=== PATIENT | female | born 1980 | race Hispanic/Latino ===

== ENCOUNTER 2016-05-05 06:27 | Emergency (ER) | payer SELFPAY ==
[2016-05-05] MEDS ORDERED: NARCAN 2 MG/2 ML ONE ×2 (06:32→06:35)
[2016-05-05] MEDS ORDERED: ZOFRAN ONE (06:33)
[2016-05-05 06:49] LABS: ISTAT Base Excess -4; ISTAT DEVICE 0; ISTAT HCO3 21.7; ISTAT PCO2 39.3 (35-45); ISTAT PH 7.349 (7.35-7.45); ISTAT PO2 90 (80-105); ISTAT SO2 97; ISTAT TCO2 23
[2016-05-05] MEDS ORDERED: ZOFRAN IV ONE (06:52)
[2016-05-05] MEDS ORDERED: NACL 0.9% 1000 ML 1,000 ML IV ONE (06:52)
[2016-05-05] MEDS ORDERED: NARCAN 0.4 MG/1 ML IV ONE (06:52)
[2016-05-05 07:27] LABS: Urine Drugs of Abuse Note Disclamer
[2016-05-05 07:28] LABS: Basophils % (Auto) 0.7 % (0.0-1.8); Eosinophils % (Auto) 2.5 % (0.0-4.3); Hematocrit 39.1 % (30.3-42.9); Hemoglobin 13.4 gm/dl (10.1-14.3); Mean Corpuscular HGB Conc 34 % (30-34); Mean Corpuscular Hemoglobin 32 pg (28-32); Mean Corpuscular Volume 92 fl (79-97); Platelet Count 354 K/mm3 (140-440); Red Blood Count 4.23 M/mm3 (3.65-5.03); White Blood Count 8.8 K/mm3 (4.5-11.0)
[2016-05-05 07:31] VITALS: BP 113/82
[2016-05-05 07:38] LABS: Bilirubin,Urine NEG (Negative); Blood,Urine NEG (Negative); Ketones,Urine TR mg/dL (Negative); Leukocyte Esterase,Urine NEG (Negative); Nitrite,Urine NEG (Negative); Protein,Urine <15 mg/dL mg/dL (Negative); Urobilinogen,Urine < 2.0 mg/dL (<2.0)
[2016-05-05 07:40] LABS: INR 0.98 (0.87-1.13)
[2016-05-05 07:41] LABS: Partial Thromboplastin Time 34.8 Sec. (24.2-36.6)
[2016-05-05 07:49] LABS: Alanine Aminotransferase 15 units/L (7-56); Albumin 3.8 g/dL (3.9-5); Alkaline Phosphatase 58 units/L (35-129); Bilirubin,Total 0.3 mg/dL (0.1-1.2); Blood Urea Nitrogen 12 mg/dL (7-17); Calcium 8.8 mg/dL (8.4-10.2); Carbon Dioxide 20 mmol/L (22-30); Chloride 102.3 mmol/L (98-107); Creatine Kinase 164 units/L (30-135); Glucose 106 mg/dL (65-100); Potassium 4.6 mmol/L (3.6-5.0); Sodium 138 mmol/L (137-145); Total Protein 7.7 g/dL (6.3-8.2)
[2016-05-05 07:52] LABS: Bilirubin,Indirect 0.1 mg/dL
--- NOTE | 2016-05-05 07:52 | XRay Report ---
AP CHEST: HISTORY: Altered mental status AP view of the chest demonstrates a normal mediastinal and cardiac contour with clear lungs and normal bony and soft tissue structures. IMPRESSION: Unremarkable AP chest.
[2016-05-05 07:57] LABS: Anion Gap 20 mmol/L; Bilirubin,Direct < 0.2 mg/dL (0-0.2)
--- NOTE | 2016-05-05 08:10 | Admit Criteria Form ---
Admission Criteria Documentation: ACUTE LOSS OF CONSCIOUSNESS- ALOC Clinical Indications for Inpatient Care (Place 'X' for any and all applicable criteria): Ongoing inpatient care may be needed for ANY ONE of the following(1)(2)(3)(5)(6) : [ ]I. Suspected serious etiology (eg, medical disorder, STONE SAWYER event) of mental status change [ ]II. Danger to self or others not manageable at lower level of care [ ]III. Grave disability (eg, inability to perform self care necessary at lower level of care) [ ]IV. Agitation or inappropriate behavior interfering with care for primary condition (eg, attempting to discontinue lines or drains prematurely, unable to cooperate with respiratory care) [ ]V. Delirium [A] [D][E] as described by ANY ONE of the following(26): [ ]a) Delirium due to alcohol or sedative [F] withdrawal [ ]b) Delirium of uncertain etiology that has not responded to appropriate empiric treatment [ ]c) Delirium that prevents performance of a life-sustaining function (eg, feeding or hydrating oneself) [X ]. General contraindications and/or Inappropriate clinical situations for Observational Care in patients with Acute Loss of Consciousness, when ANY ONE of the following is required: [X ]a) Prediction of prolongation of LOS based on ANY ONE of the following may be considered as a contraindication for observational care 2, 3, 4, 5, 6, 7, 8 , 9, 10, 11 [ ]i) Age > 65 yrs. [X ]ii) Patient arriving by ambulance [ ]iii) Patient with high acuity [ ]iv) Patient requiring vital sign monitoring [ ]v) Patient on IV medication [ ]b) Systolic blood pressures 180mmHg 3,12 [ ]c) Patient with altered mental status including delirium and other alteration of consciousness, (3) [ ]d) Patient whose discharge disposition will be to a senior living home or rehabilitation home should not be managed in Emergency Department Observation Unit. CMS rule requires 3 days hospital stay before such placement.3,13 [ ]e) Patient with failure to thrive due to broad array of etiologies 3,16,17 [ ]f) Inability to ambulate 3,14 Extended stay beyond goal length of stay for the primary condition may be needed until ALL of the following are present(3)(5): [ ]a) Underlying medical etiology of mental status change is absent, or has been established and adequately treated [ ]b) Danger to self or others is absent or manageable at lower level of care. [ ]c) Behavior crisis management, including physical or chemical restraints, is not required or available at lower level of car [ ]d) Substance or alcohol withdrawal is absent or manageable at lower level of care. [ ]e) Behavioral symptoms (eg, agitation, somnolence, inappropriate behavior) are absent, or are manageable at lower level of care. The original [facility] [employer] content created by [facility] [employer] has been revised. The portions of the content which have been revised are identified through the use of italic text or in bold, and [facility] [employer] has neither reviewed nor approved the modified material. All other unmodified content is copyright [facility] [employer]. Please see references footnoted in the original [facility] edition 2016 Admission Criteria Met: Yes
--- NOTE | 2016-05-05 08:31 | Cat Scan Report ---
CT HEAD WITHOUT CONTRAST: HISTORY: Altered mental status. Serial contiguous axial images were obtained through the cranium. Intravenous contrast material was not administered. The ventricles are normal in size and appearance. There is no mass effect or midline shift. No areas of abnormally increased or decreased attenuation are seen. No mass lesion is seen. Moderate mucosal thickening is noted in the ethmoid and maxillary sinuses. The mastoid air cells are clear. IMPRESSION: Cranial CT scan within normal limits. Chronic sinus disease.
--- NOTE | 2016-05-05 09:36 | Emergency Department Report ---
ED Altered Mental Status HPI - General Chief Complaint: Altered Mental Status Stated Complaint: UNRESPONSIVE Time Seen by Provider: 05/05/16 06:51 Source: EMS Mode of arrival: Stretcher Limitations: Altered Mental Status - History of Present Illness Initial Comments: The patient was transported via EMS in a poorly responsive state. She was found in this condition behind a local hotel. Her glucose was over 100. EMS could not initiated an IV. Her pulse oximetry was ample. She was transported without further intervention or compromise. She arrived at this facility in a stuporous condition. However, she was maintaining her oxygen saturation at about 98%. MD Complaint: altered mental status -: unknown Severity: severe Consistency of Symptoms: unknown Context: drug abuse (substance abuse is suspected substance abuse is suspected) - Related Data Allergies Allergy/AdvReac Type Severity Reaction Status Date / Time Unable to Assess Allergy Unverified 05/05/16 06:52 ED Review of Systems ROS: Stated complaint: UNRESPONSIVE Other details as noted in HPI Comment: Unobtainable due to pts medical conditions ED Past Medical Hx - Past Medical History Previous Medical History?: No Additional medical history: Essentially unknown - Social History Substance Use Type: Other ED Physical Exam - General Limitations: Altered Mental Status General appearance: obtunded - Head Head exam: Present: atraumatic - Eye Eye exam: Present: normal appearance - ENT ENT exam: Present: mucous membranes moist - Neck Neck exam: Present: normal inspection. Absent: tenderness, meningismus - Respiratory Respiratory exam: Present: normal lung sounds bilaterally. Absent: respiratory distress - Cardiovascular Cardiovascular Exam: Present: regular rate, normal rhythm. Absent: systolic murmur, diastolic murmur, rubs, gallop - GI/Abdominal GI/Abdominal exam: Present: soft, normal bowel sounds. Absent: distended, tenderness, guarding, rebound, rigid - Extremities Exam Extremities exam: Present: normal inspection, full ROM, normal capillary refill. Absent: tenderness - Back Exam Back exam: Present: normal inspection - Neurological Exam Neurological exam: Present: altered, other (no gross focal deficits limited exam ) - Psychiatric Psychiatric exam: Present: flat affect - Skin Skin exam: Present: warm, dry, intact, normal color. Absent: rash - Level of Consciousness 1a. Level of Consciousness: not alert, rep stimuli - LOC Questions 1b. LOC Questions: answers no questions correctly - LOC Command 1c. LOC Commands: performs no tasks correctly - Best Gaze 2. Best Gaze: normal - Visual 3. Visual: no visual loss - Facial Palsy 4. Facial Palsy: normal symmetrical movement - Motor Arm 5b. Motor Arm Right: no drift 5a. Motor Arm Left: no drift - Motor Leg 6a. Motor Leg Left: no drift 6b. Motor Leg Right: no drift - Limb Ataxia 7. Limb Ataxia: absent - Sensory 8. Sensory: normal - Best Language 9. Best Language: no aphasia - Dysarthria 10. Dysarthria: normal - Extinction and Inattention 11. Extinction/Inattention: no abnormality - Scoring Total Score: 6 Stroke Severity: Moderate Stroke ED Course Vital Signs 05/05/16 05/05/16 05/05/16 06:51 06:59 07:00 Temperature 97.9 F Pulse Rate 85 78 Respiratory 14 14 Rate Blood Pressure 115/85 Blood Pressure 113/82 [Right] O2 Sat by Pulse 100 100 Oximetry - Reevaluation(s) Reevaluation #1: The patient's laboratory database was reasonably close to normal limits. Arterial blood gas showed no evidence of compromise. A CT of the head and a chest x-ray showed no acute process. Eventually the patient woke up and became coherent. She didn't require any assisted airway. She was actually referred to the service of the hospitalist Dr. Ho. Ankur, when he examined her she informed him that she wanted to sign out AMA. I instructed the nurses to verify that she was capable of completing her activities of daily living and ensure a safe discharge of a [facility] ambulatory patient. I believe they did so. 05/05/16 10:29 - Lab Data Result diagrams: 05/05/16 07:06 05/05/16 07:06 Lab Results 05/05/16 05/05/16 05/05/16 Range/Units 06:44 06:45 06:45 WBC (4.5-11.0) K/mm3 RBC (3.65-5.03) M/mm3 Hgb (10.1-14.3) gm/dl Hct (30.3-42.9) % MCV (79-97) fl MCH (28-32) pg MCHC (30-34) % RDW (13.2-15.2) % Plt Count (140-440) K/mm3 Lymph % (Auto) (13.4-35.0) % [place]assen % (Auto) (0.0-7.3) % Eos % (Auto) (0.0-4.3) % Baso % (Auto) (0.0-1.8) % Lymph # (1.2-5.4) K/mm3 [place]assen # (0.0-0.8) K/mm3 Eos # (0.0-0.4) K/mm3 Baso # (0.0-0.1) K/mm3 Seg Neutrophils % (40.0-70.0) % Seg Neutrophils # (1.8-7.7) K/mm3 PT (12.2-14.9) Sec. INR (0.87-1.13) APTT (24.2-36.6) Sec. POC ABG pH 7.349 L (7.35-7.45) POC ABG pCO2 39.3 (35-45) POC ABG pO2 90 (80-105) POC ABG HCO3 21.7 POC ABG Total CO2 23 POC ABG O2 Sat 97 POC ABG Base Excess -4 FiO2 21 % Sodium (137-145) mmol/L Potassium (3.6-5.0) mmol/L Chloride (98-107) mmol/L Carbon Dioxide (22-30) mmol/L Anion Gap mmol/L BUN (7-17) mg/dL Creatinine (0.7-1.2) mg/dL Estimated GFR ml/min BUN/Creatinine Ratio % Glucose (65-100) mg/dL Lactic Acid (0.7-2.0) mmol/L Calcium (8.4-10.2) mg/dL Total Bilirubin (0.1-1.2) mg/dL Direct Bilirubin (0-0.2) mg/dL Indirect Bilirubin mg/dL AST (5-40) units/L ALT (7-56) units/L Alkaline Phosphatase (35-129) units/L Total Creatine Kinase (30-135) units/L Troponin T (0.00-0.029) ng/mL Total Protein (6.3-8.2) g/dL Albumin (3.9-5) g/dL Albumin/Globulin Ratio % TSH (0.270-4.200) mlU/mL Urine Color Yellow (Yellow) Urine Turbidity Clear (Clear) Urine pH 5.0 (5.0-7.0) Ur Specific [place] 1.023 (1.003-1.030) Urine Protein <15 mg/dl (Negative) mg/dL Urine Glucose (UA) Neg (Negative) mg/dL Urine Ketones Tr (Negative) mg/dL Urine Blood Neg (Negative) Urine Nitrite Neg (Negative) Ur Reducing Substances Not Reportable Urine Bilirubin Neg (Negative) Urine Ictotest Not Reportable Urine Urobilinogen < 2.0 (<2.0) mg/dL Ur Leukocyte Esterase Neg (Negative) Urine WBC (Auto) 1.0 (0.0-6.0) /HPF Urine RBC (Auto) 2.0 (0.0-6.0) /HPF U Epithel Cells (Auto) 1.0 (0-13.0) /HPF Urine HCG, Qual Negative (Negative) Salicylates (2.8-20.0) mg/dL Urine Opiates Screen Presumptive negative Urine Methadone Screen Presumptive negative Acetaminophen (10.0-30.0) ug/mL Ur Barbiturates Screen Presumptive negative Ur Phencyclidine Scrn Presumptive negative Ur Amphetamines Screen Presumptive positive U Benzodiazepines Scrn Presumptive positive Urine Cocaine Screen Presumptive negative U Marijuana (THC) Screen Presumptive negative Drugs of Abuse Note Disclamer Plasma/Serum Alcohol (0-0.07) gm% 05/05/16 05/05/16 05/05/16 Range/Units 07:06 07:06 07:06 WBC 8.8 (4.5-11.0) K/mm3 RBC 4.23 (3.65-5.03) M/mm3 Hgb 13.4 (10.1-14.3) gm/dl Hct 39.1 (30.3-42.9) % MCV 92 (79-97) fl MCH 32 (28-32) pg MCHC 34 (30-34) % RDW 13.0 L (13.2-15.2) % Plt Count 354 (140-440) K/mm3 Lymph % (Auto) 14.4 (13.4-35.0) % [place]assen % (Auto) 8.1 H (0.0-7.3) % Eos % (Auto) 2.5 (0.0-4.3) % Baso % (Auto) 0.7 (0.0-1.8) % Lymph # 1.3 (1.2-5.4) K/mm3 [place]assen # 0.7 (0.0-0.8) K/mm3 Eos # 0.2 (0.0-0.4) K/mm3 Baso # 0.1 (0.0-0.1) K/mm3 Seg Neutrophils % 74.3 H (40.0-70.0) % Seg Neutrophils # 6.6 (1.8-7.7) K/mm3 PT 12.9 (12.2-14.9) Sec. INR 0.98 (0.87-1.13) APTT 34.8 (24.2-36.6) Sec. POC ABG pH (7.35-7.45) POC ABG pCO2 (35-45) POC ABG pO2 (80-105) POC ABG HCO3 POC ABG Total CO2 POC ABG O2 Sat POC ABG Base Excess FiO2 % Sodium 138 (137-145) mmol/L Potassium 4.6 (3.6-5.0) mmol/L Chloride 102.3 (98-107) mmol/L Carbon Dioxide 20 L (22-30) mmol/L Anion Gap 20 mmol/L BUN 12 (7-17) mg/dL Creatinine 0.6 L (0.7-1.2) mg/dL Estimated GFR > 60 ml/min BUN/Creatinine Ratio 20.00 % Glucose 106 H (65-100) mg/dL Lactic Acid (0.7-2.0) mmol/L Calcium 8.8 (8.4-10.2) mg/dL Total Bilirubin 0.3 (0.1-1.2) mg/dL Direct Bilirubin < 0.2 (0-0.2) mg/dL Indirect Bilirubin 0.1 mg/dL AST 31 (5-40) units/L ALT 15 (7-56) units/L Alkaline Phosphatase 58 (35-129) units/L Total Creatine Kinase 164 H (30-135) units/L Troponin T < 0.010 (0.00-0.029) ng/mL Total Protein 7.7 (6.3-8.2) g/dL Albumin 3.8 L (3.9-5) g/dL Albumin/Globulin Ratio 1.0 % TSH (0.270-4.200) mlU/mL Urine Color (Yellow) Urine Turbidity (Clear) Urine pH (5.0-7.0) Ur Specific [place] (1.003-1.030) Urine Protein (Negative) mg/dL Urine Glucose (UA) (Negative) mg/dL Urine Ketones (Negative) mg/dL Urine Blood (Negative) Urine Nitrite (Negative) Ur Reducing Substances Urine Bilirubin (Negative) Urine Ictotest Urine Urobilinogen (<2.0) mg/dL Ur Leukocyte Esterase (Negative) Urine WBC (Auto) (0.0-6.0) /HPF Urine RBC (Auto) (0.0-6.0) /HPF U Epithel Cells (Auto) (0-13.0) /HPF Urine HCG, Qual (Negative) Salicylates (2.8-20.0) mg/dL Urine Opiates Screen Urine Methadone Screen Acetaminophen (10.0-30.0) ug/mL Ur Barbiturates Screen Ur Phencyclidine Scrn Ur Amphetamines Screen U Benzodiazepines Scrn Urine Cocaine Screen U Marijuana (THC) Screen Drugs of Abuse Note Plasma/Serum Alcohol (0-0.07) gm% 05/05/16 05/05/16 05/05/16 Range/Units 07:06 07:06 07:06 WBC (4.5-11.0) K/mm3 RBC (3.65-5.03) M/mm3 Hgb (10.1-14.3) gm/dl Hct (30.3-42.9) % MCV (79-97) fl MCH (28-32) pg MCHC (30-34) % RDW (13.2-15.2) % Plt Count (140-440) K/mm3 Lymph % (Auto) (13.4-35.0) % [place] % (Auto) (0.0-7.3) % Eos % (Auto) (0.0-4.3) % Baso % (Auto) (0.0-1.8) % Lymph # (1.2-5.4) K/mm3 [place] # (0.0-0.8) K/mm3 Eos # (0.0-0.4) K/mm3 Baso # (0.0-0.1) K/mm3 Seg Neutrophils % (40.0-70.0) % Seg Neutrophils # (1.8-7.7) K/mm3 PT (12.2-14.9) Sec. INR (0.87-1.13) APTT (24.2-36.6) Sec. POC ABG pH (7.35-7.45) POC ABG pCO2 (35-45) POC ABG pO2 (80-105) POC ABG HCO3 POC ABG Total CO2 POC ABG O2 Sat POC ABG Base Excess FiO2 % Sodium (137-145) mmol/L Potassium (3.6-5.0) mmol/L Chloride (98-107) mmol/L Carbon Dioxide (22-30) mmol/L Anion Gap mmol/L BUN (7-17) mg/dL Creatinine (0.7-1.2) mg/dL Estimated GFR ml/min BUN/Creatinine Ratio % Glucose (65-100) mg/dL Lactic Acid 0.9 (0.7-2.0) mmol/L Calcium (8.4-10.2) mg/dL Total Bilirubin (0.1-1.2) mg/dL Direct Bilirubin (0-0.2) mg/dL Indirect Bilirubin mg/dL AST (5-40) units/L ALT (7-56) units/L Alkaline Phosphatase (35-129) units/L Total Creatine Kinase (30-135) units/L Troponin T (0.00-0.029) ng/mL Total Protein (6.3-8.2) g/dL Albumin (3.9-5) g/dL Albumin/Globulin Ratio % TSH 1.360 (0.270-4.200) mlU/mL Urine Color (Yellow) Urine Turbidity (Clear) Urine pH (5.0-7.0) Ur Specific [place] (1.003-1.030) Urine Protein (Negative) mg/dL Urine Glucose (UA) (Negative) mg/dL Urine Ketones (Negative) mg/dL Urine Blood (Negative) Urine Nitrite (Negative) Ur Reducing Substances Urine Bilirubin (Negative) Urine Ictotest Urine Urobilinogen (<2.0) mg/dL Ur Leukocyte Esterase (Negative) Urine WBC (Auto) (0.0-6.0) /HPF Urine RBC (Auto) (0.0-6.0) /HPF U Epithel Cells (Auto) (0-13.0) /HPF Urine HCG, Qual (Negative) Salicylates < 0.3 L (2.8-20.0) mg/dL Urine Opiates Screen Urine Methadone Screen Acetaminophen (10.0-30.0) ug/mL Ur Barbiturates Screen Ur Phencyclidine Scrn Ur Amphetamines Screen U Benzodiazepines Scrn Urine Cocaine Screen U Marijuana (THC) Screen Drugs of Abuse Note Plasma/Serum Alcohol (0-0.07) gm% 05/05/16 05/05/16 Range/Units 07:06 07:06 WBC (4.5-11.0) K/mm3 RBC (3.65-5.03) M/mm3 Hgb (10.1-14.3) gm/dl Hct (30.3-42.9) % MCV (79-97) fl MCH (28-32) pg MCHC (30-34) % RDW (13.2-15.2) % Plt Count (140-440) K/mm3 Lymph % (Auto) (13.4-35.0) % [place] % (Auto) (0.0-7.3) % Eos % (Auto) (0.0-4.3) % Baso % (Auto) (0.0-1.8) % Lymph # (1.2-5.4) K/mm3 [place] # (0.0-0.8) K/mm3 Eos # (0.0-0.4) K/mm3 Baso # (0.0-0.1) K/mm3 Seg Neutrophils % (40.0-70.0) % Seg Neutrophils # (1.8-7.7) K/mm3 PT (12.2-14.9) Sec. INR (0.87-1.13) APTT (24.2-36.6) Sec. POC ABG pH (7.35-7.45) POC ABG pCO2 (35-45) POC ABG pO2 (80-105) POC ABG HCO3 POC ABG Total CO2 POC ABG O2 Sat POC ABG Base Excess FiO2 % Sodium (137-145) mmol/L Potassium (3.6-5.0) mmol/L Chloride (98-107) mmol/L Carbon Dioxide (22-30) mmol/L Anion Gap mmol/L BUN (7-17) mg/dL Creatinine (0.7-1.2) mg/dL Estimated GFR ml/min BUN/Creatinine Ratio % Glucose (65-100) mg/dL Lactic Acid (0.7-2.0) mmol/L Calcium (8.4-10.2) mg/dL Total Bilirubin (0.1-1.2) mg/dL Direct Bilirubin (0-0.2) mg/dL Indirect Bilirubin mg/dL AST (5-40) units/L ALT (7-56) units/L Alkaline Phosphatase (35-129) units/L Total Creatine Kinase (30-135) units/L Troponin T (0.00-0.029) ng/mL Total Protein (6.3-8.2) g/dL Albumin (3.9-5) g/dL Albumin/Globulin Ratio % TSH (0.270-4.200) mlU/mL Urine Color (Yellow) Urine Turbidity (Clear) Urine pH (5.0-7.0) Ur Specific [place] (1.003-1.030) Urine Protein (Negative) mg/dL Urine Glucose (UA) (Negative) mg/dL Urine Ketones (Negative) mg/dL Urine Blood (Negative) Urine Nitrite (Negative) Ur Reducing Substances Urine Bilirubin (Negative) Urine Ictotest Urine Urobilinogen (<2.0) mg/dL Ur Leukocyte Esterase (Negative) Urine WBC (Auto) (0.0-6.0) /HPF Urine RBC (Auto) (0.0-6.0) /HPF U Epithel Cells (Auto) (0-13.0) /HPF Urine HCG, Qual (Negative) Salicylates (2.8-20.0) mg/dL Urine Opiates Screen Urine Methadone Screen Acetaminophen < 15.0 (10.0-30.0) ug/mL Ur Barbiturates Screen Ur Phencyclidine Scrn Ur Amphetamines Screen U Benzodiazepines Scrn Urine Cocaine Screen U Marijuana (THC) Screen Drugs of Abuse Note Plasma/Serum Alcohol < 0.01 (0-0.07) gm% Critical Care Time: Yes Critical care time in (mins) excluding proc time.: 45 Critical care attestation.: If time is entered above; I have spent that time in minutes in the direct care of this critically ill patient, excluding procedure time. ED Disposition Clinical Impression: Stupor Altered mental state Qualifiers: Altered mental status type: somnolence Qualified Code(s): R40.0 - Somnolence Disposition: LEFT AGAINST MEDICAL ADVICE Is pt being admited?: No Does the pt Need Aspirin: No Condition: Stable Referrals: PRIMARY CARE, [Primary Care Provider] - 3-5 Days Time of Disposition: 10:35
== END 2016-05-05 08:45 | disposition left against medical advice (07) ==
LOC: ED 06:27
DX: R40.0 Somnolence (principal); R40.1 Stupor
CPT/HCPCS: 36415; 51702; 70450; 71010; 80048; 80074; 80307; 81001; 81025; 82140; 82550; 82803; 84443; 84484; 85025; 85610; 85730; 87086; 96374; 96375; 99291; G0480; J2310; J2405; J7030; 80320

== ENCOUNTER 2018-01-24 13:27 | Emergency (ER) | payer OTHER ==
[2018-01-24 13:39] VITALS: BP 98/64
[2018-01-24] MEDS ORDERED: TORADOL IM ONE (14:28)
--- NOTE | 2018-01-24 15:09 | Emergency Department Report ---
<SENG CARTER - Last Filed: 01/24/18 16:06> ED Fall HPI - General Chief Complaint: Fall Stated Complaint: FELL DOWN STAIRS/RIB PAIN Time Seen by Provider: 01/24/18 14:21 - Related Data Previous Rx's Medication Instructions Recorded Last Taken Type Ibuprofen [Motrin] 800 mg PO Q8HR PRN #15 tablet 01/24/18 Unknown Rx Allergies Allergy/AdvReac Type Severity Reaction Status Date / Time No Known Allergies Allergy Verified 01/24/18 13:33 ED Review of Systems ROS: Stated complaint: FELL DOWN STAIRS/RIB PAIN Other details as noted in HPI ED Past Medical Hx - Medications Home Medications: Home Medications Medication Instructions Recorded Confirmed Last Taken Type Ibuprofen [Motrin] 800 mg PO Q8HR PRN #15 tablet 01/24/18 Unknown Rx ED Course Vital Signs 01/24/18 01/24/18 13:33 15:44 Temperature 98.4 F Pulse Rate 66 Respiratory 16 18 Rate Blood Pressure 98/64 O2 Sat by Pulse 97 Oximetry ED Medical Decision Making - Radiology Data Patient: BLANCA WILSON MR#: [id number] : 1980 Acct:[id number] Age/Sex: 38 / F ADM Date: 01/24/18 Loc: ED Attending Dr: Ordering Physician: SENG CARTER MD Date of Service: 01/24/18 Procedure(s): XR ribs UNI w PA Chest 3+V RT Accession Number(s): [id number] cc: SENG CARTER MD Fluoro Time In Minutes: RIGHT RIBS: Trauma, pain. Routine views of the rib cage demonstrate normal mineralization with no significant contour abnormalities, fractures or destructive lesions. PA view of the chest demonstrates no underlying cardiopulmonary abnormalities, fluid or pneumothorax. IMPRESSION: Normal right rib series. Transcribed By: CRYSTAL Dictated By: MICHAEL TREJO MD Electronically Authenticated By: MICHAEL TREJO MD Signed Date/Time: 01/24/18 4968 Critical care attestation.: If time is entered above; I have spent that time in minutes in the direct care of this critically ill patient, excluding procedure time. ED Disposition Clinical Impression: Thoracolumbar back pain, Rib pain on left side Accidental fall Qualifiers: Encounter type: initial encounter Qualified Code(s): W19.XXXA - Unspecified fall, initial encounter Disposition: DC-01 TO HOME OR SELFCARE Condition: Stable Instructions: Back Pain (ED), Thoracic Pain (ED), Fall Prevention (ED) Additional Instructions: Please follow up with orthopedic doctor and your primary care doctor as instructed. If he do not have a primary care doctor follow-up at [facility]. Take Motrin for pain. Rest and see discharge instructions on rice therapy If your condition worsens, return to the emergency room Referrals: PRIMARY MD ALBERT [Primary Care Provider] - 01/28/18 [facility] [Outside] - 01/28/18 MICHAEL GOSS MD [Staff Physician] - 01/28/18 Forms: Work/School Release Form(ED) <NILESGREGORIO A - Last Filed: 01/24/18 16:36> ED Fall HPI - General Source: patient, family Mode of arrival: Ambulatory Limitations: No Limitations - History of Present Illness Initial Comments: This is 38-year-old female here in the ER after falling down the stairs. She says she fell down 7 stairs and sustained injury to her left rib anterior and posterior and upper and lower back. She denies any numbness or 2 into extremities. Denies any loss of bowel or bladder control. Pain is nondistended at 10 and achy. Worse with movement. No alleviating factors. Patient denies any fever or chills or any neck pain or stiffness. Denies any chest or abdominal trauma. Denies any pain in her extremities or any head injury. She says she slipped on wet step. No medication taken per patient. MD Complaint: fall -: This morning Fall From: down stairs (#) (7) When Fall Occurred: 4-6 hours CHIEF OF VITAL STATISTICS Fall Witnessed: yes, by family Place Fall Occurred: home Loss of Consciousness: none Prolonged Down Time?: no Symptoms Prior to Fall: none Location: chest (left anterior rib and posterior rib pain), back (upper and lower back pain) Severity: severe Severity scale (0 -10): 9 Quality: aching Context: tripped/slipped Associated Symptoms: denies: headache, neck pain, numbness, weakness, chest paint, shortness of breath, abdominal pain, hematuria, unable to walk, lightheaded, vertigo, confusion ED Review of Systems Constitutional: denies: chills, fever Eyes: denies: eye pain, vision change ENT: denies: ear pain, throat pain, congestion Respiratory: denies: cough, shortness of breath, SOB with exertion, SOB at rest , stridor, wheezing Cardiovascular: other (tenderness to palpate to anterior and posterior left rib cage). denies: chest pain, palpitations, edema, syncope Gastrointestinal: denies: abdominal pain, nausea, vomiting, diarrhea, hematemesis, hematochezia Genitourinary: denies: urgency, dysuria, hematuria, discharge Musculoskeletal: back pain. denies: joint swelling, arthralgia, myalgia Skin: denies: rash, lesions Neurological: denies: headache, weakness, numbness, paresthesias, confusion, abnormal gait, vertigo Hematological/Lymphatic: denies: easy bleeding, easy bruising ED Past Medical Hx - Past Medical History Previous Medical History?: Yes Additional medical history: Essentially unknown - Surgical History Past Surgical History?: Yes Additional Surgical History: hysterectomy - Family History Family history: hypertension - Social History Smoking Status: Current Every Day Smoker Substance Use Type: None ED Physical Exam - General Limitations: No Limitations General appearance: alert, in no apparent distress - Head Head exam: Present: atraumatic, normocephalic, normal inspection, other (normal exam) - Eye Eye exam: Present: normal appearance, PERRL, EOMI. Absent: nystagmus Pupils: Present: normal accommodation - ENT ENT exam: Present: normal exam, normal orophraynx, mucous membranes moist, TM's normal bilaterally, normal external ear exam - Neck Neck exam: Present: normal inspection, full ROM, other (no C-spine tenderness). Absent: tenderness, lymphadenopathy - Respiratory Respiratory exam: Present: normal lung sounds bilaterally, chest wall tenderness (patient with left anterior and posterior rib cage tenderness at the lying to mid axillary line proximally and distally). Absent: respiratory distress, wheezes, rales, rhonchi, stridor, accessory muscle use, decreased breath sounds, prolonged expiratory - Cardiovascular Cardiovascular Exam: Present: regular rate, normal rhythm, normal heart sounds. Absent: systolic murmur, diastolic murmur - GI/Abdominal GI/Abdominal exam: Present: soft, normal bowel sounds. Absent: tenderness, organomegaly, mass - Extremities Exam Extremities exam: Present: normal inspection, full ROM. Absent: tenderness - Back Exam Back exam: Present: normal inspection, full ROM. Absent: tenderness, CVA tenderness (L), muscle spasm - Neurological Exam Neurological exam: Present: alert, oriented X3 - Psychiatric Psychiatric exam: Present: normal affect, normal mood - Skin Skin exam: Present: warm, dry, intact, normal color. Absent: rash ED Course - Reevaluation(s) Reevaluation #1: 01/24/18 16:15 Patient given Toradol 60 mg IM with some relief of pain. Still awaiting in x- ray reports Reevaluation #2: 01/24/18 16:26 Patient said her pain is better and I discussed with her that all her x-rays are within normal limits and she is fine. ED Medical Decision Making - Radiology Data Radiology results: report reviewed X-ray of T-spine and L-spine reviewed by myself and Dr. Seng Carter who is the medical technologist hematology. No acute fracture or subluxation seen. - Medical Decision Making This is a 38-year-old female reports that she fell down 7 steps accidentally today. She says she is having pain to her upper or lower back and her left anterior and posterior rib. X-ray of left ribs with PA chest shows no acute finding and this was dictated by radiologist and report reviewed by myself. X-ray of T-spine and L-spine reviewed by myself and Dr. Carter and final report still to come from radiologist. No acute fracture or subluxation seen. Assessment/plan 1: Thoracolumbar back pain secondary to accidental fall-better with Toradol 60 mg IM and patient will be sent home on Motrin 2: Left rib pain due to fall-x-ray left rib series with PA chest normal findings. Patient pain is better and she has no ecchymosis or bruising to her left anterior posterior rib. Patient is stable and in no acute distress. She said her pain is better. I discussed with her her x-ray reports and she voiced understanding told her she needs to follow-up with orthopedic and her primary care doctor on Sunday if she still continues to have pain. Patient is neurologically intact. Vital signs stable she is afebrile and discharged home in stable condition with prescription for Motrin. - Differential Diagnosis FX, subluxation, contusion, MSK pain ED Disposition Is pt being admited?: No Does the pt Need Aspirin: No
--- NOTE | 2018-01-24 15:42 | XRay Report ---
RIGHT RIBS: Trauma, pain. Routine views of the rib cage demonstrate normal mineralization with no significant contour abnormalities, fractures or destructive lesions. PA view of the chest demonstrates no underlying cardiopulmonary abnormalities, fluid or pneumothorax. IMPRESSION: Normal right rib series.
--- NOTE | 2018-01-24 16:42 | Emergency Department Report ---
Blank Doc - Documentation Documentation: Is a 38-year-old female with a past history of back pain who fell down 7 stairs and has some rib discomfort and exacerbation of her back pain. X- rays were taken of the T-spine and L-spine and right sided ribs and the patient be reassessed
--- NOTE | 2018-01-24 16:55 | XRay Report ---
FINAL REPORT EXAM: XR SPINE LUMBOSACRAL 2-3V HISTORY: post fall back pain TECHNIQUE: AP, lateral and coned-down views of the lumbar spine PRIORS: None. FINDINGS: There are 6 lumbar type vertebral bodies, which is a normal variant. The 6th vertebral level is a transitional vertebral body with partial sacralization on the left. The chronic nonfusion of the apophysis involving the superior anterior corner of L4 is noted. Otherwise, the vertebral body heights and disc spaces are well maintained. The alignment is normal. No evidence for spondylolysis or spondylolisthesis is seen. Pedicles are intact bilaterally at all levels. The paraspinal soft tissues are unremarkable. IMPRESSION: No evidence for acute fracture.
--- NOTE | 2018-01-24 16:56 | XRay Report ---
FINAL REPORT EXAM: XR SPINE THORACIC 2V HISTORY: post fall back pain TECHNIQUE: AP, lateral and swimmer's views of the thoracic spine. PRIORS: None. FINDINGS: The vertebral body heights and disc spaces are well maintained. Subtle levoscoliosis in the lower thoracic spine at T9 is noted. Pedicles are intact bilaterally at all levels. The paraspinal soft tissues are unremarkable. IMPRESSION: No acute abnormality in the thoracic spine.
== END 2018-01-24 16:45 | disposition home or self-care (01) ==
LOC: ED 13:27
DX: M54.5 Low back pain (principal); M54.89 Other dorsalgia; R07.81 Pleurodynia; F17.200 Nicotine dependence, unspecified, uncomplicated; W01.0XXA Fall on same level from slipping, tripping and stumbling without subsequent striking against object, initial encounter; Y93.89 Activity, other specified; Y99.8 Other external cause status; Y92.019 Unspecified place in single-family (private) house as the place of occurrence of the external cause
CPT/HCPCS: 71101; 72070; 72100; 96372; 99283; J1885

== ENCOUNTER 2020-06-10 18:46 | Emergency (ER) | payer SELFPAY ==
[2020-06-10 19:29] VITALS: BP 125/86
--- NOTE | 2020-06-10 19:45 | Emergency Department Report ---
ED Back Pain/Injury HPI - General Chief Complaint: Back Pain/Injury Stated Complaint: FURNITURE FELL ON BACK Time Seen by Provider: 06/10/20 18:51 Source: patient Limitations: No Limitations - History of Present Illness Initial Comments: Patient is a 40-year-old female presents emergency room with c/o left-sided back pain that began 2 days ago. Patient states that she was helping move some furniture with a ruben and that the top part of the dresser fell off and hit her on the left side of the back. She denies any other injury. She states that she does have a history of a prior fracture of her L2 vertebrae which she reports that she did not have to have surgery for. She denies hitting her head, loss of consciousness, vomiting, numbness, weakness, saddle numbness, bowel bladder incontinence, any other injury. She denies any other past medical history. No allergies to medications, she states that aspirin occasionally gives her epistaxis. She states that she had a partial hysterectomy. - Related Data Previous Rx's Medication Instructions Recorded Last Taken Type Ibuprofen [Motrin] 800 mg PO Q8HR PRN #15 tablet 01/24/18 Unknown Rx Menthol/Camphor [[place] 1 applicatio TP BID #18 oint...g. 06/10/20 Unknown Rx Ointment] Naproxen [EC-Naprosyn] 500 mg PO BID PRN #20 tablet.dr 06/10/20 Unknown Rx methOCARBAMOL [Robaxin TAB] 500 mg PO BID PRN #20 tab 06/10/20 Unknown Rx Allergies Allergy/AdvReac Type Severity Reaction Status Date / Time No Known Allergies Allergy Verified 01/24/18 13:33 ED Review of Systems ROS: Stated complaint: FURNITURE FELL ON BACK Other details as noted in HPI Comment: All other systems reviewed and negative ED Past Medical Hx - Past Medical History Previous Medical History?: No Additional medical history: Essentially unknown - Surgical History Past Surgical History?: Yes Additional Surgical History: hysterectomy - Social History Smoking Status: Never Smoker Substance Use Type: None - Medications Home Medications: Home Medications Medication Instructions Recorded Confirmed Last Taken Type Ibuprofen [Motrin] 800 mg PO Q8HR PRN #15 tablet 01/24/18 Unknown Rx Menthol/Camphor [[place] 1 applicatio TP BID #18 oint...g. 06/10/20 Unknown Rx Ointment] Naproxen [EC-Naprosyn] 500 mg PO BID PRN #20 tablet.dr 06/10/20 Unknown Rx methOCARBAMOL [Robaxin TAB] 500 mg PO BID PRN #20 tab 06/10/20 Unknown Rx ED Physical Exam - General Limitations: No Limitations General appearance: alert, in no apparent distress - Head Head exam: Present: atraumatic, normocephalic - Eye Eye exam: Present: normal appearance - ENT ENT exam: Present: mucous membranes moist - Neck Neck exam: Present: normal inspection, full ROM. Absent: tenderness - Respiratory Respiratory exam: Present: normal lung sounds bilaterally. Absent: respiratory distress, wheezes, rales, rhonchi, stridor, chest wall tenderness, accessory muscle use, decreased breath sounds, prolonged expiratory - Cardiovascular Cardiovascular Exam: Present: normal rhythm, tachycardia, normal heart sounds. Absent: systolic murmur, diastolic murmur, rubs, gallop - Back Exam Back exam: Present: normal inspection, full ROM, paraspinal tenderness (left sided lumbar paraspinal muscular ttp, no midline C-spine, T-spine or L-spine ttp, no step offs, no deformities, no ecchymosis, no crepitus, no abrasion or laceration). Absent: vertebral tenderness - Neurological Exam Neurological exam: Present: alert, oriented X3, CN II-XII intact, normal gait. Absent: motor sensory deficit - Psychiatric Psychiatric exam: Present: normal affect, normal mood - Skin Skin exam: Present: warm, dry, intact ED Course Vital Signs 06/10/20 06/10/20 19:20 20:50 Temperature 98.2 F Pulse Rate 129 H 102 H Respiratory 16 18 Rate Blood Pressure 125/86 O2 Sat by Pulse 98 100 Oximetry ED Medical Decision Making - Lab Data Vital Signs 06/10/20 06/10/20 19:20 20:50 Temperature 98.2 F Pulse Rate 129 H 102 H Respiratory 16 18 Rate Blood Pressure 125/86 O2 Sat by Pulse 98 100 Oximetry - Radiology Data Radiology results: report reviewed Ordering Physician: SUSHIL URRUTIA Date of Service: 06/10/20 Procedure(s): XR spine thoracic 3V Accession Number(s): [id number] cc: TROY L. DEYANIRA, PA Fluoro Time In Minutes: THORACIC SPINE 2 VIEWS 1945 INDICATION: furniture fell on back COMPARISON: 01/24/2018 FINDINGS: Scoliosis is again seen. Lateral view is slightly blurred by motion. Mild lower thoracic degenerative changes are seen. No fractures or dislocations are noted. Disc spaces are maintained. Appearance of the L2 vertebral body and believe is artifactual. Signer Name: Silvino Pierce MD Signed: 06/10/2020 7:56 PM Workstation Name: [id number] Transcribed By: STANFORD Dictated By: Silvino Pierce MD Electronically Authenticated By: Silvino Pierce MD Signed Date/Time: 06/10/201955 DD/ 53 TD/TT: - Medical Decision Making Patient is a 40-year-old female presents emergency room with c/o left-sided back pain that began 2 days ago. Patient states that she was helping move some furniture with a ruben and that the top part of the dresser fell off and hit her on the left side of the back. She denies any other injury. She states that she does have a history of a prior fracture of her L2 vertebrae which she reports that she did not have to have surgery for. She denies hitting her head, loss of consciousness, vomiting, numbness, weakness, saddle numbness, bowel bladder incontinence, any other injury. She denies any other past medical history. No allergies to medications, she states that aspirin occasionally gives her epistaxis. She states that she had a partial hysterectomy. initial vitals with tachycardia which improved upon repeat. on exam: left sided lumbar paraspinal muscular ttp, no midline C-spine, T-spine or L-spine ttp, no step offs, no deformities, no ecchymosis, no crepitus, no abrasion or laceration. XR T-spine: FINDINGS: Scoliosis is again seen. Lateral view is slightly blurred by motion. Mild lower thoracic degenerative changes are seen. No fractures or dislocations are noted. Disc spaces are maintained. Appearance of the L2 vertebral body and believe is artifactual. Discussed all results with patient answered questions. Patient given prescription for naproxen, Robaxin, [place] balm ointment. Advised patient Please use medication as prescribed as needed. May use ice pack, heating pad, rest, and epsom salt bath. Follow-up with a primary care doctor. Follow-up with orthopedic/spine doctor. Return to emergency room for any new or worsening symptoms. Critical care attestation.: If time is entered above; I have spent that time in minutes in the direct care of this critically ill patient, excluding procedure time. ED Disposition Clinical Impression: Back pain Qualifiers: Back pain location: thoracic back pain Chronicity: acute Back pain laterality: left Qualified Code(s): M54.6 - Pain in thoracic spine Disposition: DC- TO HOME OR SELFCARE Is pt being admited?: No Does the pt Need Aspirin: No Condition: Stable Instructions: Muscle Strain Additional Instructions: Please use medication as prescribed as needed. May use ice pack, heating pad, rest, and epsom salt bath. Follow-up with a primary care doctor. Follow-up with orthopedic/spine doctor. Return to emergency room for any new or worsening symptoms. Prescriptions: Naproxen [EC-Naprosyn] 500 mg PO BID PRN #20 tablet.dr PRN Reason: pain methOCARBAMOL [Robaxin TAB] 500 mg PO BID PRN #20 tab PRN Reason: pain Menthol/Camphor [[place] Ointment] 1 applicatio TP BID #18 oint...g. Referrals: [facility] [Provider Group] - 2-3 Days [facility] [Provider Group] - 2-3 Days MICKY ZHOU MD [Staff Physician] - 2-3 Days JOSE F FERNANDEZ II, MD [Staff Physician] - 2-3 Days Time of Disposition: 20:06 Print Language: KHMER
--- NOTE | 2020-06-10 20:01 | XRay Report ---
THORACIC SPINE 2 VIEWS 194 INDICATION: furniture fell on back COMPARISON: 01/24/2018 FINDINGS: Scoliosis is again seen. Lateral view is slightly blurred by motion. Mild lower thoracic de generative changes are seen. No fractures or dislocations are noted. Disc spaces are maintained. Appe arance of the L2 vertebral body and believe is artifactual. Signer Name: Silvino Pierce MD Signed: 06/10/2020 7:56 PM Workstation Name: [id number]
== END 2020-06-10 21:18 | disposition home or self-care (01) ==
LOC: ED 18:46
DX: M54.9 Dorsalgia, unspecified (principal); Z90.710 Acquired absence of both cervix and uterus; Z79.899 Other long term (current) drug therapy
CPT/HCPCS: 72072; 99283